=== PATIENT | female | born 1960 | race Caucasian/White ===

== ENCOUNTER 2016-08-14 08:00 | Day surgery (SDC) | payer OTHER ==
[~2016-08-14] VITALS: Ht 162.6 cm; Wt 81.1 kg
[2016-08-14] VITALS (29 sets, daily range): BP systolic 85–122; BP diastolic 48–73; PULSE 61–76; RESP 13–31; Ht 162.6 cm; Wt 81.1 kg
[2016-08-14] MEDS ORDERED: NIT4 SL (08:42)
[2016-08-14] MEDS ORDERED: CILO50TA PO (08:43)
[2016-08-14] MEDS ORDERED: ASPI-664 PO (08:44)
[2016-08-14] MEDS ORDERED: METO25TA7 PO (08:44)
[2016-08-14 09:29] LABS: ADD SCAN DIFF NO
[2016-08-14 09:32] LABS: BASOPHIL # 0.1 10^3/ul (0.0-0.1); BASOPHILS % 0.7 % (0.0-2.0); EOSINOPHILS # 0.2 10^3/ul (0.0-0.5); EOSINOPHILS % 2.5 % (0.0-7.0); HEMOGLOBIN 13.1 g/dl (12.0-16.0); LYMPHOCYTES # 2.3 10^3/ul (0.8-2.9); LYMPHOCYTES % 31.7 % (15.0-51.0); MEAN CORPUSCULAR HEMOGLOBIN 31.3 pg (29.0-33.0); MEAN CORPUSCULAR HGB CONC 33.6 g/dl (32.0-37.0); MEAN CORPUSCULAR VOLUME 93.3 fl (82.0-101.0); MONOCYTE # 0.6 10^3/ul (0.3-0.9); MONOCYTES % 8.6 % (0.0-11.0); NEUTROPHILS % 56.2 % (39.0-77.0); PLATELET COUNT 241 10^3/UL (140-415); RED BLOOD COUNT 4.18 10^6/ul (4.20-5.40); RED CELL DISTRIBUTION WIDTH 13.2 % (11.5-14.5); WHITE BLOOD COUNT 7.1 10^3/ul (4.8-10.8)
[2016-08-14 09:43] LABS: INR 0.94; PROTIME 12.6 Sec (12.2-14.2)
[2016-08-14 09:44] LABS: PARTIAL THROMBOPLASTIN TIME 28.4 Sec (25.0-35.0)
[2016-08-14 09:50] LABS: CHOL/HDL RATIO 3.8 RATIO
[2016-08-14 09:53] LABS: CALCIUM 9.3 mg/dl (8.4-10.2); CREATININE 0.64 mg/dl (0.44-1.00); POTASSIUM 4.6 mmol/L (3.5-5.1)
--- NOTE | 2016-08-14 10:12 | RADRPT ---
Vent Rate: 70 bpm RR Interval: 0 msec CO Interval: 136 msec QRS Duration: 88 msec QT Interval: 432 msec QTC Interval: 466 msec P-R-T [place]: 58 - 31 - 36 degrees Sinus rhythm with frequent premature ventricular complexes in a pattern of bigeminy Low voltage QRS Borderline ECG Electronically Signed By: Christian Ragsdale [id number]
[2016-08-14] MEDS ORDERED: LIDOCAINE 1% (MDV) 20 ML INJ ONE (10:35)
[2016-08-14] MEDS ORDERED: IODIXANOL LOCM 100 ML BTL ONE (10:35)
[2016-08-14] MEDS ORDERED: HEPARIN 1000 UNITS/ML 10 ML INJ ONE (10:35)
[2016-08-14] MEDS ORDERED: MIDAZOLAM 1 MG/ML 2 ML INJ ONE (10:36)
[2016-08-14] MEDS ORDERED: HEPARIN 1000 UNITS/NS (A-LINE) 1,000 ML ONE (10:36)
[2016-08-14] MEDS ORDERED: NITROGLYCERIN (IC) 100 MCG/ML INJ ONE (10:37)
[2016-08-14] MEDS ORDERED: VERAPAMIL 5 MG INJ ONE (10:37)
[2016-08-14] MEDS ORDERED: FENTAnyl 50 MCG/ML VIAL ONE (10:37)
--- NOTE | 2016-08-14 10:44 | RADRPT ---
PROCEDURE: XR Chest. CLINICAL INDICATION: Preoperative. Coronary artery disease. TECHNIQUE: Single frontal view. COMPARISON: None. FINDINGS: The lungs are clear. The heart size is normal. There is no pleural effusion. There is no pneumothorax. IMPRESSION: 1. Normal chest radiograph. RPTAT: QQ .Elder Grady MD, MD Date Time Electronically viewed and signed by .Elder Grady MD, on 08/14/2016 10:44 .R/
[2016-08-14] MEDS ORDERED: SOD CHLORIDE 0.9% 1,000 ML IV SCH (11:41)
[2016-08-14] MEDS ORDERED: AL HYDROX/MG HYDROX/SIMETH 30 ML CUP PO PRN (12:00)
[2016-08-14] MEDS ORDERED: ACETAMINOPHEN 325 MG TAB PO PRN (12:00)
[2016-08-14] MEDS ORDERED: morphine 2 MG INJ IV PRN (12:00)
[2016-08-14] MEDS ORDERED: ONDANSETRON 4 MG INJ IV PRN (12:00)
--- NOTE | 2016-08-14 13:25 | CARRPT ---
DATE OF PROCEDURE: 08/14/2016 TYPE OF PROCEDURE: 1. Left heart catheterization. 2. Coronary angiography. 3. Measurement of left ventricular end diastolic pressure. ATTENDING PHYSICIAN: Iglesia Stanford MD REFERRING PHYSICIAN: Dr. Ravi Hernandez. INDICATION: Cardiac arrhythmia with positive stress test findings for ischemia. TYPE OF ANESTHESIA: Conscious and local. BRIEF HISTORY: Ms. Gabriel is a 55-year-old female with history of hypertension and dyslipidemia wh o initially presented with complaints of palpitations, found to have bigeminy and cardiac arrhythmia . The patient subsequently had a cardiac stress test revealing positive ischemia. The patient has now been referred for left heart catheterization to assess for the possibility of significant obstru ctive coronary artery disease lending to symptoms of PVCs with bigeminy and positive stress test fin dings. DESCRIPTION OF PROCEDURE: After informed consent was obtained, the patient was brought to the [facility] cardiac catheterization lab where her right radial area was prepped and drap ed in usual sterile fashion. 2% Lidocaine was administered to the right radial area in order to ach ieve adequate local anesthesia. With modified Seldinger technique, the right renal artery is cannul ated and a 6-Italian arterial sheath was placed. A 6-Italian JL3 catheter was used to cannulate the l eft main coronary ostium. With contrast injection, multiple views of the left coronary arterial sys tem were obtained. JL3 was removed over a guidewire and a JR4 was used to cannulate the right coron merrick arterial ostium. With contrast injection, multiple views of the right coronary arterial system obtained. JR4 was then additionally used to cross the aortic valve where left ventricular end-diast olic pressure was measured and pullback across the aortic valve to assess for significant gradient, which there was not and removed. Subsequently, at this time, this completed the procedure. The pat ient's catheter was removed. The patient's sheath was removed. TR band was applied. There were no noted complications. FINDINGS: 1. Coronary angiography: Left main 4 mm, no significant stenoses. Circumflex proximally 3.5 mm wi th a 20% mid body stenosis. Circumflex has a distal branching obtuse marginal 3 mm, no significant focal stenoses. LAD proximally is a 3 mm vessel and very small caliber with a 20% mid body stenosis , no other significant focal stenoses. A proximal branching diagonal 2 mm, no significant focal matti noses. The right coronary artery proximally is a 3 mm dominant vessel has luminal irregularities up to 20%, gives off a small PDA sub 2 mm with no significant focal stenoses. 2. Measurement of left ventricular end diastolic pressure of 8, no significant aortic stenosis by paz chu. TOTAL FLUOROSCOPY TIME: 5 minutes. TOTAL CONTRAST: 30 mL. IMPRESSION: 1. Very mild nonobstructive coronary artery disease. 2. Low normal left heart filling pressures. 3. No significant aortic stenosis by gradient. RECOMMENDATIONS: 1. In light of previous findings at this time, would maximize medical management. 2. Aggressive risk factor reduction. 3. The patient will be readmitted to same day surgery center for post-cath observation and continue d management of his presenting symptoms with probable discharge later this afternoon. Dictated By: IGLESIA CISNEROS/VALENTE Conf#: [id number] DID#: [id number] CC: RAVI HERNANDEZ MD;*EndCC*
== END 2016-08-14 16:30 | disposition home or self-care (01) ==
LOC: SDS 08:00
PROVIDERS: ATTEND Internal Medicine
DX: I25.10 Atherosclerotic heart disease of native coronary artery without angina pectoris (principal); R94.39 Abnormal result of other cardiovascular function study
CPT/HCPCS: 71010; 80048; 80061; 85025; 85610; 85730; 93005; 93458; C1769; C1887; J1644; J2250; J3010; Q9967; Z7610